=== PATIENT | female | born 1945 | race Caucasian/White ===

== ENCOUNTER → 2018-10-13 | Outpatient (CLI) | payer MEDICARE | LOC: MC.RAD 10:35 | DX: Z12.31 Encounter for screening mammogram for malignant neoplasm of breast (principal) ==

== ENCOUNTER → 2019-10-16 | Outpatient (CLI) | payer MEDICARE | LOC: MC.RAD 11:35 | DX: Z12.31 Encounter for screening mammogram for malignant neoplasm of breast (principal) ==

== ENCOUNTER → 2020-10-21 | Outpatient (CLI) | payer MEDICARE | LOC: COL.RAD 12:45 | DX: F17.210 Nicotine dependence, cigarettes, uncomplicated (principal) ==

== ENCOUNTER → 2020-11-04 | Outpatient (CLI) | payer MEDICARE | LOC: MC.RAD 10:41 | DX: Z12.31 Encounter for screening mammogram for malignant neoplasm of breast (principal) ==

== ENCOUNTER → 2021-11-22 | Outpatient (CLI) | payer MEDICARE | LOC: COL.RAD 07:51 | DX: Z12.2 Encounter for screening for malignant neoplasm of respiratory organs (principal); F17.210 Nicotine dependence, cigarettes, uncomplicated ==

== ENCOUNTER → 2021-11-23 | Outpatient (CLI) | payer MEDICARE | LOC: MC.RAD 08:30 | DX: Z12.31 Encounter for screening mammogram for malignant neoplasm of breast (principal) ==

== ENCOUNTER → 2022-12-27 | Outpatient (CLI) | payer MEDICARE | LOC: CANSCHCLI → MC.RAD 10:16 | DX: Z12.31 Encounter for screening mammogram for malignant neoplasm of breast (principal) ==

== ENCOUNTER → 2024-01-21 | Outpatient (CLI) | payer MEDICARE | LOC: MC.RAD 10:43 | DX: Z12.31 Encounter for screening mammogram for malignant neoplasm of breast (principal); Z00.00 Encounter for general adult medical examination without abnormal findings ==